=== PATIENT | female | born 1975 | race Caucasian/White ===

== ENCOUNTER 2016-12-12 10:48 | Emergency (ER) | payer OTHER ==
[~2016-12-12] VITALS: Ht 157.5 cm; Wt 78.9 kg
[~2016-12-12 10:48] MED LIST: ACET500C5 PO; GUAI473L22 PO; IBUP-1542 PO; SODI126M NASAL
[2016-12-12 10:51] VITALS: Ht 157.5 cm; Wt 78.9 kg
[2016-12-12 12:24] LABS: URINE BLOOD (Dip) POC 2+ (NEGATIVE)
[2016-12-12] MEDS ORDERED: ACETAMINOPHEN 325 MG TAB PO ONE (12:30)
[2016-12-12] MEDS ORDERED: LIDOCAINE 1% (MDV) 20 ML INJ SC ONE (13:00)
[2016-12-12] MEDS ORDERED: IBUPROFEN 600 MG TAB PO ONE (13:00)
[2016-12-12] MEDS ORDERED: CEFTRIAXONE 1 GM INJ IM ONE (13:00)
--- NOTE | 2016-12-12 13:18 | RADRPT ---
PROCEDURE: CT Abdomen and Pelvis without contrast CLINICAL INDICATION: Flank pain, fever TECHNIQUE: Transaxial images were obtained through the abdomen and pelvis on a multi-slice scanner without the intravenous contrast administration. No oral contrast had previously been given. Sagit mark and coronal re-formations were subsequently reconstructed. One or more of the following dose reduction techniques were used: - Automated exposure control. - Adjustment of the mA and/or kV according to patient size. - Use of iterative reconstruction technique. Radiation dose: CTDIvol = 23.12 mGy; DLP = 1479.78 mGy-cm. COMPARISON: 10/01/2016 FINDINGS: Lung bases: The visualized lung bases appear unremarkable. Liver: The liver remains enlarged with no focal lesion identified. Gallbladder: Surgical emilia are again seen within the gallbladder fossa. Bile ducts: The intra and extrahepatic bile ducts are normal in caliber. Pancreas: Appears normal with no mass or inflammation evident. Spleen: Normal in size with no focal lesion. Adrenals: Normal with no mass identified. Kidneys, ureters and bladder: The kidneys are normal in size and there is no mass, pathological calc ification, or hydronephrosis evident. There is no perinephric stranding. The ureters are normal in c aliber and no ureteroliths are identified. The bladder appears unremarkable. Reproductive organs: The uterus appears retroverted. No adnexal mass is identified. Phleboliths ar e seen in the pelvis. Stomach and bowel: The stomach appears unremarkable. The small bowel gas pattern reflects a mild il eus. There is no evidence of bowel obstruction or inflammation. Appendix: A normal vermiform appendix is evident. Peritoneum: No free intraperitoneal fluid or air is identified. There is a small midline supraumbili sindi fat-containing hernia. There is a moderate-sized fat containing umbilical hernia. Surgical stap les are seen within the subcutaneous fat of the superior anterior abdominal wall to the right of mid line. Aorta: Normal in caliber with no aneurysmal dilatation. IVC: Unremarkable. Lymph nodes: No pathologically enlarged nodes are identified. Osseous structures: Mild anterior spondylosis is seen to the inferior thoracic spine. IMPRESSION: 1. Previous cholecystectomy and not associated bile duct dilatation or pancreatic pathology. 2. Mild hepatomegaly with no focal lesion. 3. No evidence of bowel obstruction or inflammation with a normal-appearing vermiform appendix. 4. No evidence of urinary outflow obstruction or ureterolithiasis. The bladder appears unremarkabl e. 5. Small fat containing supraumbilical hernia with a moderate fat-containing umbilical hernia. Thi s is unchanged from the previous. 6. Surgical emilia are seen within the subcutaneous fat of the superior abdominal wall to the righ t of midline, unchanged. Physician Blake Date Time Electronically viewed and signed by Serenity Kang Physician on 12/12/2016 13:17 /
[2016-12-12] MEDS ORDERED: CEPH-443 PO (13:42)
[2016-12-12] MEDS ORDERED: IBUP800T25 PO (13:42)
--- NOTE | 2016-12-12 13:44 | ERD ---
ER Documentation Chief Complaint Date/Time DATE: 12/12/16 TIME: 13:43 Chief Complaint ap since yesterday HPI This 41-year-old female presents with left lower back pain and dysuria starting yesterday. She feels like she may have fevers but she has no fever triage. She has no sore throat, cough, anterior abdominal pain, vomiting, diarrhea. ROS All systems reviewed and are negative except as per history of present illness. Medications Home Meds Active Scripts Cephalexin* (Keflex*) 500 Mg Capsule, 500 MG PO QID for 7 Days, CAP Prov:PURVI BROWNE MD 12/12/16 Ibuprofen* (Motrin*) 800 Mg Tab, 800 MG PO Q6, #20 TAB Prov:PURVI BROWNE MD 12/12/16 Guaifenesin-Codeine Phosphate* (Guaifenesin* AC Cough Syrup) 473 Ml Liquid, 10 ML PO Q4H Y for COUGH, #120 ML Prov:JEFFRY MAYO NP 10/01/16 Sodium Chloride (Saline Nasal Mist) 126 Ml Mist, 2 SPRAY NASAL Q2H Y for NASAL CONGESTION, #1 BOTTLE Prov:JEFFRY MAYO [employer] SUPER[employer]OR 10/01/16 Acetaminophen* (Tylophen*) 500 Mg Capsule, 1 CAP PO Q6H Y for PAIN AND OR ELEVATED TEMP, #20 CAP Prov:JEFFRY MAYO [employer] SUPERVISOR 10/01/16 Ibuprofen* (Ibuprofen*) 600 Mg Tablet, 600 MG PO Q6, #20 TAB 0 Refills Prov:VIJAY BECERRA MD 06/07/16 Allergies Allergies: Coded Allergies: Penicillins (Verified Allergy, Intermediate, RASH, 01/19/16) PMhx/Soc History of Surgery: Yes (Cholecystectomy) Anesthesia Reaction: No Hx Neurological Disorder: No Hx Respiratory Disorders: No Hx Cardiac Disorders: No Hx Psychiatric Problems: No Hx Miscellaneous Medical Probl: Yes (Gallstones) Hx Alcohol Use: No Hx Substance Use: No Hx Tobacco Use: No Physical Exam Vitals Vital Signs Date Time Temp Pulse Resp B/P Pulse Ox O2 Delivery O2 Flow Rate FiO2 12/12/16 10:51 98.1 99 18 137/67 99 Physical Exam Const: [] Alert, [id number]. Head: Atraumatic Eyes: Normal Conjunctiva ENT: Normal External Ears, Nose and Mouth. Neck: Full range of motion..~ No meningismus. Resp: Clear to auscultation bilaterally Cardio: Regular rate and rhythm, no murmurs Abd: Soft, non tender, non distended. Normal bowel sounds Skin: No petechiae or rashes Back: No midline. There is some tenderness in the left L2-L3 or possibly. L4 to paraspinous muscles. No exquisite flank tenderness. Ext: No cyanosis, or edema Neur: Awake and alert Psych: Normal Mood and Affect Results 24 hrs Laboratory Tests Test 12/12/16 12:28 Bedside Urine Blood 2+ Bedside Urine Glucose (UA) Negative Bedside Urine Ketones (LAB) Negative Bedside Urine Leukocyte Esterase (L 1+ Bedside Urine Nitrite (LAB) Negative Bedside Urine Protein (LAB) Negative Bedside Urine pH (LAB) 7.5 Current Medications Medications (Trade) Dose Ordered Sig/Jose Route PRN Reason Start Time Stop Time Status Last Admin Dose Admin Acetaminophen (Tylenol Tab) 650 mg ONCE ONCE PO 12/12/16 12:30 12/12/16 12:31 DC 12/12/16 12:30 Ceftriaxone Sodium (Rocephin) 1 gm ONCE ONCE IM 12/12/16 13:00 12/12/16 13:01 DC 12/12/16 13:25 Lidocaine (Xylocaine 1% (Mdv) 20 ml) 20 ml ONCE ONCE SC 12/12/16 13:00 12/12/16 13:01 DC 12/12/16 13:25 Ibuprofen (Motrin) 600 mg ONCE ONCE PO 12/12/16 13:00 12/12/16 13:01 DC 12/12/16 13:25 Procedures/MDM Urine shows leukocytes and hemoglobin. HCG is negative. Patient was given Rocephin 1 g IM and ibuprofen p.o. CT abdomen and pelvis was negative for septic stone, appendicitis, additional acute findings. Patient has signs of UTI and low back pain and possibly flank pain. There is no signs of pyelonephritis sent to CT scan and she is in no evidence of fever or tachycardia. Patient was treated with Keflex and ibuprofen instructions for clear fluids and further evaluation. The patient was stable with no new complaints during the ER course. Clinically, there is no current evidence to suggest meningitis, sepsis, acute abdomen, pneumonia, acute coronary syndrome, pulmonary embolism, or any other emergent condition appearing to require further evaluation or hospitalization. The patient should certainly return for any new or worsening symptoms per the aftercare instructions. They should otherwise follow-up with her primary care doctor for reevaluation this week. Patient shows no evidence to suggest fracture, dislocation, septic stone, epidural abscess but should return for new or worsening symptoms as directed. Departure Diagnosis: Primary Impression: Back pain Back pain location: low back pain Chronicity: acute Back pain laterality: left Sciatica presence: without sciatica Qualified Code: M54.5 - Acute left- sided low back pain without sciatica Condition: Stable Patient Instructions: Understanding Urinary Tract Infections (UTIs), Flank Pain , Uncertain Cause Additional Instructions: Urine shows infection. CT is normal. Drink plenty fluids and rest at home. Recheck for fevers, vomiting, worsening pain, new worsening symptoms or primary care doctor this week. PURVI BROWNE MD Dec 12, 2016 13:44
== END 2016-12-12 14:05 | disposition home or self-care (01) ==
LOC: FTE 10:48
DX: M54.5 Low back pain (principal)
CPT/HCPCS: 74176; 81003; 96372; J0696; Z7502; Z7610

== ENCOUNTER 2017-10-05 15:38 | Emergency (ER) | END 2017-10-05 18:59 | disposition home or self-care (01) ==

== ENCOUNTER 2019-01-04 03:11 | Emergency (ER) | payer MEDICAID, OTHER ==
[~2019-01-04] VITALS: Ht 162.6 cm; Wt 130.0 kg
[~2019-01-04 03:11] MED LIST changes: +CEPH-443 PO; +IBUP800T48 PO
[2019-01-04 03:25] VITALS: Ht 162.6 cm; Wt 130.0 kg
--- NOTE | 2019-01-04 03:36 | ERD ---
ER Documentation Chief Complaint Chief Complaint cough x 4 days HPI 43-year-old female, previously healthy, presents the emergency department, complaining of cough, constant, productive of yellowish sputum, associated with subjective fever and general malaise. No chest pain or shortness of breath. The patient reports that she was seen yesterday by her primary doctor and received a prescription for azithromycin and Robitussin DM without improvement of the symptoms. ROS All systems reviewed and are negative except as per history of present illness. Medications Home Meds Active Scripts Promethazine Hcl* (Promethazine Hcl* Syrup) 6.25 Mg/5 Ml Syrup, 12.5 MG PO QHS PRN for COUGH, #60 ML Prov:ALONZO PACHECO MD 01/04/19 Inhaler, Assist Devices (Compact Space Chamber) 1 Each Spacer, EACH MC, #1 Prov:ALONZO PACHECO MD 01/04/19 Albuterol Sulfate* (Proair HFA*) 8.5 Gm Hfa.aer.ad, 2 PUFF INH Q4, #1 INHALER Prov:ALONZO PACHECO MD 01/04/19 Ibuprofen* (Motrin*) 600 Mg Tab, 600 MG PO Q6, #30 TAB Prov:TELLY LOTT PA-C 10/05/17 Cephalexin* (Keflex*) 500 Mg Capsule, 500 MG PO TID for 10 Days, CAP Prov:TELLY LOTT PA-C 10/05/17 Cephalexin* (Keflex*) 500 Mg Capsule, 500 MG PO QID for 7 Days, CAP Prov:PURVI BROWNE MD 12/12/16 Ibuprofen* (Motrin*) 800 Mg Tab, 800 MG PO Q6, #20 TAB Prov:PURVI BROWNE MD 12/12/16 Guaifenesin-Codeine Phosphate* (Guaifenesin* AC Cough Syrup) 473 Ml Liquid, 10 ML PO Q4H PRN for COUGH, #120 ML Prov:JEFFRY MAYO NP 10/01/16 Sodium Chloride (Saline Nasal Mist) 126 Ml Mist, 2 SPRAY NASAL Q2H PRN for NASAL CONGESTION, #1 BOTTLE Prov:JEFFRY MAYO NP 10/01/16 Acetaminophen* (Tylophen*) 500 Mg Capsule, 1 CAP PO Q6H PRN for PAIN AND OR ELEVATED TEMP, #20 CAP Prov:JEFFRY MAYO INDIRA 10/01/16 Ibuprofen* (Ibuprofen*) 600 Mg Tablet, 600 MG PO Q6, #20 TAB 0 Refills Prov:VIJAY BECERRA MD 06/07/16 Allergies Allergies: Coded Allergies: Penicillins (Verified Allergy, Intermediate, RASH, 10/05/17) PMhx/Soc History of Surgery: Yes (Cholecystectomy) Anesthesia Reaction: No Hx Neurological Disorder: No Hx Respiratory Disorders: No Hx Cardiac Disorders: No Hx Psychiatric Problems: No Hx Miscellaneous Medical Probl: Yes (Gallstones) Hx Alcohol Use: Yes (social) Hx Substance Use: No Hx Tobacco Use: No Physical Exam Vitals Vital Signs Date Temp Pulse Resp B/P (MAP) Pulse Ox O2 O2 Flow FiO2 Time Delivery Rate 01/04/19 99.2 97 20 159/78 100 03:25 (105) Physical Exam Const: No acute distress Head: Atraumatic Eyes: Normal Conjunctiva ENT: Normal External Ears, Nose and Mouth. Neck: Full range of motion. No meningismus. Resp: Rhonchi to auscultation bilaterally Cardio: Regular rate and rhythm, no murmurs Abd: Soft, non tender, non distended. Normal bowel sounds Skin: No petechiae or rashes Back: No midline or flank tenderness Ext: No cyanosis, or edema Neur: Awake and alert Psych: Normal Mood and Affect Procedures/MDM Differential diagnosis include but not limited to: Respiratory infection bacterial/viral/fungal. Asthma, COPD, pneumonitis, allergies, GERD. Less cardiac related, aspiration pneumonia, malignancy. Physical examination and clinical presentation consistent most likely with cough, the patient is already taking azithromycin. During the ED course the patient remained stable, no new complaints. Treatment options and clinical impression discussed with patient who agrees with management. The patient is stable to be treated outpatient and will be discharged home with a Rx for pro-air and promethazine. Some side effects of prescribed medications (headache, rash, nausea, vomiting, diarrhea, interactions with other medications) were reviewed. The patient needs to follow up with the primary care provider in the next 48h. If symptoms persist, worsen or new symptoms develop, then patient should return to the ED immediately. Disclaimer: Inadvertent spelling and grammatical errors are likely due to EHR/dictation software use and do not reflect on the overall quality of patient care. Also, please note that the electronic time recorded on this note does not necessarily reflect the actual time of the patient encounter. Departure Diagnosis: Primary Impression: Cough Condition: Stable Additional Instructions: Thank you very much for allowing us to participate in your care. Your health and safety is our top priority at [facility]. Call your primary care doctor TOMORROW for an appointment during the next 2-4 days and bring all the information and medications prescribed. Have prescriptions filled and follow precisely the directions on the label. If the symptoms get worse and your provider is unavailable, return to the Emergency Department immediately. ALONZO PACHECO MD Jan 04, 2019 03:36
[2019-01-04] MEDS ORDERED: ALBU8.5H8 INH (03:50)
[2019-01-04] MEDS ORDERED: PROM6.2515 PO (03:50)
[2019-01-04] MEDS ORDERED: INHA-3 MC (03:50)
[2019-01-04 04:30] VITALS: BP 145/78; PULSE 90; RESP 20
== END 2019-01-04 04:32 | disposition home or self-care (01) ==
LOC: FTE 03:11
DX: R05 Cough (principal)
CPT/HCPCS: 99283

== ENCOUNTER 2019-06-23 20:24 | Emergency (ER) | payer SELFPAY ==
[~2019-06-23] VITALS: Ht 167.6 cm; Wt 110.0 kg
[~2019-06-23 20:24] MED LIST changes: +ALBU8.5H8 INH; +INHA-3 MC; +PROM6.2515 PO
[2019-06-23 20:45] VITALS: Ht 167.6 cm; Wt 110.0 kg
[2019-06-24 01:32] VITALS: BP 137/102; PULSE 68; RESP 20
== END 2019-06-24 01:33 | disposition home or self-care (01) ==
LOC: FTE 20:24
DX: M79.601 Pain in right arm (principal)
CPT/HCPCS: 81025; 93971